=== PATIENT | female | born 1960 | race Caucasian/White ===

== ENCOUNTER 2024-05-23 14:31 | Emergency (ER) | payer MEDICARE, OTHER ==
[~2024-05-23] VITALS: Ht 167.6 cm; Wt 117.9 kg
[2024-05-23] VITALS (23 sets, daily range): BP systolic 129–162; BP diastolic 74–91
[2024-05-23 15:00] LABS: BASO% 0.9 % (0-3); EOS% 0.9 % (0-8); HEMATOCRIT 44.4 % (37.0-47.0); HEMOGLOBIN 14.3 g/dl (12.0-16.0); IMMATURE GRANULOCYTES 0.2 % (0.0-5.0); LYMPH% 8.9 % (15-41); MEAN CELL VOLUME 95.9 fL CALC (80.0-100.0); MEAN CORPUSCULAR HGB 30.9 pG CALC (26.0-32.0); MEAN CORPUSCULAR HGB CONC 32.2 g/dL CAL (32.0-36.0); MONO% 11.5 % (2-13); NEUT# 4.25 thou/uL (2.00-7.15); NEUT% 77.6 % (42-76); RED BLOOD COUNT 4.63 mill/uL (4.20-5.60)
[2024-05-23 15:14] LABS: INTERNATIONAL NORMALIZED RATIO 1.1 RATIO (0.7-1.3)
[2024-05-23] MEDS ORDERED: ASPIRINCHW 81MG PO (15:14)
[2024-05-23] MEDS ORDERED: NEURONTIN600 MG PO (15:14)
[2024-05-23] MEDS ORDERED: IMITREX50 MG PO (15:14)
[2024-05-23 15:15] LABS: ALBUMIN 4.6 g/dL (3.2-5.0); ALKALINE PHOSPHATASE 106 u/l (38-126); ANION GAP 14 (6-22 (CALC)); BILIRUBIN, TOTAL 1.3 mg/dL (0.02-1.3); BUN 15 mg/dL (8-23); BUN/CREATININE RATIO 27 (12-20 (CALC)); CALCULATED LDLCHOLESTEROL 58 mg/dL (62-129 (CALC)); CARBON DIOXIDE 23 mmol/l (22-30); CHLORIDE 105 mmol/l (95-108); CHOLESTEROL HDL RATIO 4.6 (<4.4 (CALC)); CREATININE 0.6 mg/dL (0.5-1.0); ESTIMATED GFR 100 ML/MIN (>=90 (CALC)); HDL CHOLESTEROL 23 mg/dL (39.0-59.0); POTASSIUM 3.7 mmol/l (3.5-5.1); PROTHROMBIN TIME 10.5 SECONDS (9.0-12.5); SGOT/AST 33 u/l (9-36); SODIUM 139 mmol/l (137-146); TOTAL CHOLESTEROL 105 mg/dl (0-199); TOTAL PROTEIN 7.9 g/dL (6.3-8.2); TOTAL TRIGLYCERIDES 117 mg/dl (0-149); VLDL CHOLESTROL 23 mg/dl (1-41 (CALC))
[2024-05-23] MEDS ORDERED: PROTONIX40 M2 PO (15:15)
[2024-05-23] MEDS ORDERED: TOPROL XL25 M1 PO (15:15)
[2024-05-23] MEDS ORDERED: ATORVASTATIN CA20 MG PO (15:15)
[2024-05-23] MEDS ORDERED: CELEXA20 M1 PO (15:16)
[2024-05-23] MEDS ORDERED: OXYCODONE5 M1 PO (15:17)
[2024-05-23] MEDS ORDERED: SODIUM CHLORIDE 0.9% 1,000 ML IV ONE (17:05)
[2024-05-23 18:13] LABS: URINE BILIRUBIN - DIPSTICK Negative (NEGATIVE); URINE BLOOD DIPSTICK Negative (NEGATIVE); URINE GLUCOSE - DIPSTICK Negative (NEGATIVE); URINE KETONE Negative (NEGATIVE); URINE PH 5.5 (4.5-8.0); URINE PROTEIN - DIPSTICK Negative (NEG-TRACE); URINE UROBILINOGEN - DIPSTICK 0.2 E.U./dL (0.2)
[2024-05-23 18:14] LABS: URINE COLOR Yellow; URINE LEUK ESTERASE Small (NEGATIVE); URINE NITRITE - DIPSTICK Positive (Negative)
[2024-05-23 18:23] LABS: URINE BACTERIA FEW hpf; URINE RBC 0-2 RBC/hpf (0-5); URINE SQUAMOUS EPITHELIAL CELL MODERATE EPI/hpf (0-FEW)
[2024-05-23] MEDS ORDERED: GABAPENTIN 300 MG/CAP PO ONE (18:30)
[2024-05-23] MEDS ORDERED: DEXAMETHASONE SOD. PHOSPHATE 10 MG/ML VIAL IV ONE (20:40)
== END 2024-05-23 21:30 | disposition short-term general hospital (02) ==
LOC: ED 14:31
PROVIDERS: Family Medicine
DX: G93.9 Disorder of brain, unspecified (principal); R53.1 Weakness; R47.81 Slurred speech; I10 Essential (primary) hypertension; E78.5 Hyperlipidemia, unspecified; I71.9 Aortic aneurysm of unspecified site, without rupture; Z88.2 Allergy status to sulfonamides; Z79.82 Long term (current) use of aspirin; Z91.81 History of falling; R82.71 Bacteriuria
CPT/HCPCS: Q9967